=== PATIENT | female | born 2000 | race Caucasian/White ===

== ENCOUNTER 2021-06-18 14:24 | Emergency (ER) | payer OTHER, BC ==
[~2021-06-18] VITALS: Ht 160 cm; Wt 54.0 kg
[2021-06-18] MEDS ORDERED: ONDANSETRON HCL4 M2 PO (14:50)
[2021-06-18 14:51] LABS: BASOPHILS 0.6 % (0.0-2.0); EOSINOPHILS 0.7 % (0.0-3.0); HEMATOCRIT 32.8 % (37.0-47.0); HEMOGLOBIN 11.1 gm/dL (12.0-15.0); LYMPHOCYTES 13.8 % (24.0-44.0); MCH 30.9 pg (26.0-34.0); MONOCYTES 4.9 % (1.0-8.0); PLATELET COUNT 180 thou/uL (150-400); RDW 13.2 % (10.5-14.5); WBC 8.8 thou/uL (4.0-11.0)
[2021-06-18 14:58] LABS: CALCIUM 8.2 mg/dL (8.5-10.1); CREATININE 0.6 mg/dL (0.6-1.0)
[2021-06-18 15:03] LABS: ALBUMIN 3.1 g/dL (3.4-5.0); TOTAL BILIRUBIN 0.7 mg/dL (0.2-1.0); TOTAL PROTEIN 6.9 g/dL (6.4-8.2)
[2021-06-18 15:11] VITALS: BP 132/82
== END 2021-06-18 15:13 ==
LOC: ER 14:24
PROVIDERS: Nurse Practitioner Family
DX: O26.893 Other specified pregnancy related conditions, third trimester (principal); R10.9 Unspecified abdominal pain; Z3A.30 30 weeks gestation of pregnancy; Z79.899 Other long term (current) drug therapy; V49.9XXA Car occupant (driver) (passenger) injured in unspecified traffic accident, initial encounter; Y93.89 Activity, other specified; Y92.411 Interstate highway as the place of occurrence of the external cause; Y99.8 Other external cause status